=== PATIENT | female | born 1975 | race Caucasian/White ===

== ENCOUNTER 2017-11-25 09:59 | Outpatient (CLI) | payer BC ==
--- NOTE | 2017-11-25 12:18 | RAD ---
RIGHT HIP TWO VIEWS: HISTORY: Bilateral hip pain. FINDINGS: There are degenerative changes in the right hip manifested by osteophyte formation, joint space narro wing, and subchondral cyst formation. IMPRESSION: Right hip osteoarthritis. POS: [facility]
--- NOTE | 2017-11-25 12:19 | RAD ---
LEFT HIP 2 VIEWS: Date: 11/25/17 HISTORY: Bilateral hip pain. FINDINGS/IMPRESSION: Degenerative changes are present. No acute fracture, dislocation, or bony destruction is identified. An old, healed fracture of the left proximal femur is noted. POS: [facility]
== END 2017-11-25 10:00 | disposition home or self-care (01) ==
LOC: TBSIIMAG 09:59
PROVIDERS: ATTEND Neurological Surgery
DX: M25.551 Pain in right hip (principal); M25.552 Pain in left hip; M16.0 Bilateral primary osteoarthritis of hip